=== PATIENT | male | born 2000 | race Two or more races ===

== ENCOUNTER 2020-09-13 12:47 | Emergency (ER) | payer OTHER ==
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
--- NOTE | 2020-09-13 13:37 | CR ---
Indication: Low back pain x2 days Technique: AP and lateral views Comparison: None Findings: The lumbar vertebral body heights are maintained with straightening of the normal lumbar lordosis. Endplate Schmorl`s defect of the inferior L4 level is appreciated. There is no displaced fracture or dislocation. The partially visualized bowel gas pattern is nonobstructive. Impression: Mild spasmodic changes of the normal lumbar lordosis. Mild early degenerative change at the L4-L5 level. Dictated by Momo Oswald MD @ Sep 13 2020 1:33PM Signed by Dr. Momo Oswald @ Sep 13 2020 1:35PM
== END 2020-09-13 13:43 | disposition home or self-care (01) ==
LOC: MW.ED 12:47
DX: M54.5 Low back pain (principal); V48.5XXA Car driver injured in noncollision transport accident in traffic accident, initial encounter
CPT/HCPCS: 72100; 72100-26; 99284; 99284-25

== ENCOUNTER 2020-10-22 11:06 | Emergency (ER) | payer OTHER ==
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
[2020-10-22] MEDS ORDERED: Acetaminophen/oxyCODONE 325-10 MG Tab PO ONE (11:43)
== END 2020-10-22 12:14 | disposition home or self-care (01) ==
LOC: MW.ED 11:06
DX: S39.012A Strain of muscle, fascia and tendon of lower back, initial encounter (principal); X58.XXXA Exposure to other specified factors, initial encounter; Y99.0 Civilian activity done for income or pay
CPT/HCPCS: 99283; A9270

== ENCOUNTER 2021-04-09 08:16 | Emergency (ER) | payer SELFPAY ==
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
[2021-04-09] MEDS ORDERED: Ketorolac 30 MG/ML SDV IM ONE (09:02)
[2021-04-09 09:56] LABS: BLOOD UREA NITROGEN,BUN 10 mg/dL (7.0-18.0); CHLORIDE,CL 100 mmol/L (98-107); GLUCOSE RANDOM 110 mg/dL (74-106); POTASSIUM,K 3.4 mmol/L (3.5-5.1); SODIUM,NA 136 mmol/L (136-148)
--- NOTE | 2021-04-09 10:06 | CR ---
Indication: Chest pain Technique: Chest 2 views Comparison: None Findings: Cardiovascular and mediastinum: Heart size and vasculature are normal in caliber and appearance. Lungs and pleural spaces: Lungs are clear. No sign of infiltrate or mass. No sign of pleural effusion. No pneumothorax. Bones and soft tissues: No significant findings. Impression: No acute or significant findings. Dictated by Beck Coronado MD @ 04/09/2021 10:04:[address] Beck Coronado @ Apr 09 2021 10:04AM
== END 2021-04-09 10:19 | disposition home or self-care (01) ==
LOC: MW.ED 08:16
DX: R07.89 Other chest pain (principal); Z72.0 Tobacco use
CPT/HCPCS: 36415; 71046; 80048; 81001; 85025; 96372; 99285; J1885; 99283

== ENCOUNTER 2023-01-02 18:09 | Emergency (ER) | payer SELFPAY ==
[2023-01-02] MEDS ORDERED: Sodium Chloride 0.9% 10 ML Syringe FLUSH PRN (18:32)
[2023-01-02] MEDS ORDERED: Ketorolac 30 MG/ML SDV IVPUSH ONE (18:32)
[2023-01-02] MEDS ORDERED: Sodium Chloride 0.9% 1,000 ML IV ONE (18:32)
[2023-01-02] MEDS ORDERED: Sodium Chloride 0.9% 2.5 ML Syringe FLUSH PRN (18:32)
[2023-01-02] MEDS ORDERED: Ondansetron 4 MG/2 ML SDV IVPUSH ONE (18:32)
[2023-01-02 19:30] LABS: CARBON DIOXIDE,CO2 27.1 mmol/L (21.0-32.0); POTASSIUM,K 3.3 mmol/L (3.5-5.1)
[2023-01-02] MEDS ORDERED: Iopamidol 755 MG/ML 500 ML Multipack Bottle IVPUSH ONE (19:53)
== END 2023-01-02 20:56 | disposition home or self-care (01) ==
LOC: MW.ED 18:09
DX: K52.9 Noninfective gastroenteritis and colitis, unspecified (principal)
CPT/HCPCS: 36415; 74177; 80053; 81003; 83690; 85025; 96361; 96374; 96375; 99284; J1885; J2405; J3490; J7030; Q9967